=== PATIENT | female | born 1945 | race Caucasian/White ===

== ENCOUNTER 2018-06-04 15:00 | Emergency (ER) | payer MEDICARE, BC ==
[2018-06-04] MEDS ORDERED: LIDOCAINE VISC 2% 200MG/10ML UD MM ONE (15:46)
[2018-06-04] MEDS ORDERED: LIDOCAINE VISC 2% 15ML SOLUTION MM ONE (16:29)
--- NOTE | 2018-06-04 17:01 | Emergency Department Record ---
History of Present Illness - General Chief complaint: Nosebleed/epistaxis Stated complaint: NOSE BLEED Time Seen by Provider: 06/04/18 15:45 Source: Patient Mode of Arrival: Ambulatory Limitations: No limitations - History of Present Illness Initial comments: pt has a nosebleed. [facility] with gauze and she was sent to the ed. complaint: Epistaxis Onset/Timin -: Days(s) Severity: Moderate Severity scale (1-10): 1 Quality: Aching Consistency: Intermittent - Related Data Previous Rx's Medication Instructions Recorded Amoxicillin/Potassium Clav 1 tab PO BID #10 tab 06/04/18 [Augmentin 875-125 Tablet] Allergies Allergy/AdvReac Type Severity Reaction Status Date / Time cephalexin monohydrate Allergy HIVES Verified 06/04/18 15:21 [From Keflex] Sulfa (Sulfonamide Allergy HIVES Verified 06/04/18 15:21 Antibiotics) Travel Screening - Travel/Exposure Within Last 30 Days Have you traveled within the last 30 days?: No - Travel/Exposure Within Last Year Have you traveled outside the [place] in the last year?: No - Additonal Travel Details Have you been exposed to anyone with a communicable illness?: No - Travel Symptoms Symptom Screening: None Review of Systems Reviewed: No additional complaints except as noted below Constitutional: Reports: As per HPI. Denies: Chills, Fever, Malaise, Night sweats, Weakness, Weight change Eyes: Reports: As per HPI. Denies: Eye discharge, Eye pain, Photophobia, Vision change ENT: Reports: As per HPI. Denies: Congestion, Dental pain, Ear pain, Epistaxis , Hearing loss, Throat pain Respiratory: Reports: As per HPI. Denies: Cough, Dyspnea, Hemoptysis, Stridor, Wheezes Cardiovascular: Reports: As per HPI. Denies: Arrhythmia, Chest pain, Dyspnea on exertion, Edema, Murmurs, Orthopnea, Palpitations, Paroxysmal nocturnal dyspnea, Rheumatic Fever, Syncope Endocrine: Reports: As per HPI. Denies: Fatigue, Heat or cold intolerance, Polydipsia, Polyuria Gastrointestinal: Reports: As per HPI. Denies: Abdominal pain, Constipation, Diarrhea, Hematemesis, Hematochezia, Melena, Nausea, Vomiting Genitourinary: Reports: As per HPI. Denies: Abnormal menses, Discharge, Dyspareunia, Dysuria, Frequency, Hematuria, Incontinence, Retention, Urgency Musculoskeletal: Reports: As per HPI. Denies: Arthralgia, Back pain, Gout, Joint swelling, Myalgia, Neck pain Skin: Reports: As per HPI. Denies: Bruising, Change in color, Change in hair/ nails, Lesions, Pruritus, Rash Neurological: Reports: As per HPI. Denies: Abnormal gait, Confusion, Headache, Numbness, Paresthesias, Seizure, Tingling, Tremors, Vertigo, Weakness Psychiatric: Reports: As per HPI. Denies: Anxiety, Auditory hallucinations, Depression, Homicidal thoughts, Suicidal thoughts, Visual hallucinations Hematological/Lymphatic: Reports: As per HPI. Denies: Anemia, Blood Clots, Easy bleeding, Easy bruising, Swollen glands Past Medical History - SOCIAL HISTORY Smoking Status: Never smoker Alcohol Use: None Drug Use: None - RESPIRATORY Hx Respiratory Disorders: Yes Hx Asthma: Yes (as a child) Comment:: sinus/allergies (used to get allergy shots) - CARDIOVASCULAR Hx Cardio Disorders: Yes Hx Hypertension: Yes Comment:: high cholesterol - NEURO Hx Neuro Disorders: Yes Hx of Neuromuscular Disease: Yes (cervical dystonial-botox q 3months) - GI Hx GI Disorders: Yes Hx Irritable Bowel: Yes Hx Wt Loss/Wt Gain: Yes (down 20lbs from c-diff) Comment:: c-diff 02/2016 treated w/anbx - Hx Genitourinary Disorders: Yes Hx UTI: Yes (recently) - ENDOCRINE Hx Endocrine Disorders: Yes Hx Thyroid Disease: Yes (enlarged-no problems) - MUSCULOSKELETAL Hx Musculoskeletal Disorders: Yes Hx Osteoporosis: Yes - PSYCH Hx Psych Problems: Yes Hx Anxiety: Yes (r/t mother's recent ) Hx Depression: Yes - HEMATOLOGY/ONCOLOGY Hx Hematology/Oncology Disorders: No Family Medical History Any Significant Family History?: Yes Hx Anxiety: Mother, Grandparents Hx Cancer: Mother *Cancer Comment: breast Hx Depression: Mother Hx HTN: Mother Hx Stroke: Mother Physical Exam - General General Appearance: Alert, Oriented x3, Cooperative, Mild distress - Head Head exam: Normal inspection - Eye Eye exam: Normal appearance, PERRL, EOMI Pupils: Normal accommodation - ENT ENT exam: Normal exam, Mucous membranes moist, Normal external ear exam, Normal orophraynx Ear exam: Normal external inspection. negative: External canal tenderness Nasal Exam: Active bleeding, Dried blood. negative: Discharge, Sinus tenderness Mouth exam: Normal external inspection, Tongue normal Teeth exam: Normal inspection. negative: Dental caries Throat exam: Normal inspection. negative: Tonsillar erythema, Tonsillar exudate - Neck Neck exam: Normal inspection, Full ROM. negative: Tenderness - Respiratory Respiratory exam: Normal lung sounds bilaterally. negative: Respiratory distress - Cardiovascular Cardiovascular Exam: Regular rate, Normal rhythm, Normal heart sounds - GI/Abdominal GI/Abdominal exam: Soft, Normal bowel sounds. negative: Tenderness - Rectal Rectal exam: Deferred - exam: Deferred - Extremities Extremities exam: Normal inspection, Full ROM, Normal capillary refill. negative: Tenderness - Back Back exam: Reports: Normal inspection, Full ROM. Denies: Muscle spasm, Rash noted, Tenderness - Neurological Neurological exam: Alert, CN II-XII intact, Normal gait, Oriented X3 - Psychiatric Psychiatric exam: Normal affect, Normal mood - Skin Skin exam: Dry, Intact, Normal color, Warm Course Vital Signs 06/04/18 15:12 Temperature 98.2 F Pulse Rate 72 Respiratory 18 Rate Blood Pressure 172/74 Pulse Ox 100 - Reevaluation(s) Reevaluation #1: 06/04/18 17:01 gauze was removed, cotton balls with lidocaine placed, then removed. l nares still trickling. nares packed w rhino rockets Disposition Disposition: Discharge Clinical Impression: Epistaxis Disposition: Home, Self-Care Condition: (1) Good Instructions: Nosebleed (ED) Additional Instructions: follow up with family doctor or ent. return sooner if worse. have packing remove in 3 days. Prescriptions: Amoxicillin/Potassium Clav [Augmentin 875-125 Tablet] 1 tab PO BID #10 tab Referrals: CRISTOBAL MCKEON [DOCTOR OF OSTEOPATH] - Quality - Quality Measures Quality Measures: N/A - Blood Pressure Screening Does Patient Have Any of the Following: Active Dx of HTN Blood Pressure Classification: Hypertensive Reading Systolic Measurement: 172 Diastolic Measurement: 74 Screening for High Blood Pressure: Patient Exclusion, Hx of HTN [G9744]
== END 2018-06-04 17:23 | disposition home or self-care (01) ==
LOC: ER 15:00
DX: R04.0 Epistaxis (principal); I10 Essential (primary) hypertension
CPT/HCPCS: 30901; 99283

== ENCOUNTER 2018-06-05 09:49 | Emergency (ER) | payer MEDICARE, BC | END 2018-06-05 10:01 | disposition left against medical advice (07) | LOC: ER 09:49 | DX: Z53.20 Procedure and treatment not carried out because of patient's decision for unspecified reasons (principal) ==

== ENCOUNTER 2018-06-07 11:10 | Emergency (ER) | payer MEDICARE, BC ==
--- NOTE | 2018-06-07 11:23 | Emergency Department Record ---
History of Present Illness - General Chief complaint: ENT Stated complaint: NOSE PACKING REMOVAL Time Seen by Provider: 06/07/18 11:11 Source: Patient Mode of Arrival: Ambulatory Limitations: No limitations - History of Present Illness Initial comments: The patient had a nosebleed 3 days ago and had bilateral nasal packing placed. She has had no problems or any further bleeding. She is not on any blood thinners. MD complaint: Epistaxis Onset/Timin -: Days(s) Improves with: None Worsens with: None - Related Data Previous Rx's Medication Instructions Recorded Amoxicillin/Potassium Clav 1 tab PO BID #10 tab 06/04/18 [Augmentin 875-125 Tablet] Allergies Allergy/AdvReac Type Severity Reaction Status Date / Time cephalexin monohydrate Allergy HIVES Verified 06/04/18 15:21 [From Keflex] Sulfa (Sulfonamide Allergy HIVES Verified 06/04/18 15:21 Antibiotics) Travel Screening - Travel/Exposure Within Last 30 Days Have you traveled within the last 30 days?: No - Travel/Exposure Within Last Year Have you traveled outside the [place] in the last year?: No - Additonal Travel Details Have you been exposed to anyone with a communicable illness?: No Review of Systems Constitutional: Denies: Chills, Fever Eyes: Denies: Eye discharge ENT: Denies: Congestion Respiratory: Denies: Cough, Dyspnea Past Medical History - SOCIAL HISTORY Smoking Status: Never smoker Alcohol Use: None Drug Use: None - RESPIRATORY Hx Respiratory Disorders: Yes Hx Asthma: Yes (as a child) Comment:: sinus/allergies (used to get allergy shots) - CARDIOVASCULAR Hx Cardio Disorders: Yes Hx Hypertension: Yes Comment:: high cholesterol - NEURO Hx Neuro Disorders: Yes Hx of Neuromuscular Disease: Yes (cervical dystonial-botox q 3months) - GI Hx GI Disorders: Yes Hx Irritable Bowel: Yes Hx Wt Loss/Wt Gain: Yes (down 20lbs from c-diff) Comment:: c-diff 02/2016 treated w/anbx - Hx Genitourinary Disorders: Yes Hx UTI: Yes (recently) - ENDOCRINE Hx Endocrine Disorders: Yes Hx Thyroid Disease: Yes (enlarged-no problems) - MUSCULOSKELETAL Hx Musculoskeletal Disorders: Yes Hx Osteoporosis: Yes - PSYCH Hx Psych Problems: Yes Hx Anxiety: Yes (r/t mother's recent ) Hx Depression: Yes - HEMATOLOGY/ONCOLOGY Hx Hematology/Oncology Disorders: No Family Medical History Any Significant Family History?: No Hx Anxiety: Mother, Grandparents Hx Cancer: Mother *Cancer Comment: breast Hx Depression: Mother Hx HTN: Mother Hx Stroke: Mother Physical Exam - General General Appearance: Alert, Oriented x3, Cooperative, No acute distress - Head Head exam: Atraumatic, Normocephalic, Normal inspection - Eye Eye exam: Normal appearance, PERRL - ENT Nasal Exam: Normal inspection. negative: Active bleeding, Discharge, Sinus tenderness Throat exam: Normal inspection. negative: Tonsillar erythema, Tonsillar exudate - Neck Neck exam: Normal inspection, Full ROM. negative: Tenderness - Respiratory Respiratory exam: Normal lung sounds bilaterally. negative: Respiratory distress - Cardiovascular Cardiovascular Exam: Regular rate, Normal rhythm, Normal heart sounds Course Vital Signs 06/07/18 11:14 Pulse Rate 69 Respiratory 16 Rate Blood Pressure 193/88 Pulse Ox 100 - Reevaluation(s) Reevaluation #1: The patient had her packs removed without difficulty and had no further bleeding. 06/07/18 11:27 Disposition Disposition: Discharge Clinical Impression: Epistaxis Disposition: Home, Self-Care Condition: (2) Stable Instructions: Nosebleed (ED) Additional Instructions: Please stop your oral antibiotic and return to the ER for any problems. Please see your family doctor to recheck your blood pressure. Forms: Patient Portal Access Time of Disposition: 11:28 Quality - Quality Measures Quality Measures: N/A - Blood Pressure Screening View Details: Yes Does Patient Have Any of the Following: Active Dx of HTN Blood Pressure Classification: Pre-Hypertensive BP Reading Systolic Measurement: 193 Diastolic Measurement: 88 Screening for High Blood Pressure: Patient Exclusion, Hx of HTN [G9744]
== END 2018-06-07 11:39 | disposition home or self-care (01) ==
LOC: ER 11:10
DX: R04.0 Epistaxis (principal); I10 Essential (primary) hypertension
CPT/HCPCS: 99282